=== PATIENT | male | born 1980 | race Caucasian/White ===

== ENCOUNTER 2018-11-24 23:02 | Emergency (ER) | payer OTHER ==
[2018-11-24] MEDS ORDERED: Proparacaine 0.5% Ophth Soln 15 ML Bottle STA (23:40)
--- NOTE | 2018-11-24 23:47 | EDM.PDOC ---
ED HPI GENERAL MEDICAL PROBLEM - General Chief Complaint: ENT Problem Stated Complaint: COLD/RIGHT EAR PRESSURE & PAIN Time Seen by Provider: 11/24/18 23:10 Source of Information: Reports: Patient History Limitations: Reports: No Limitations - History of Present Illness INITIAL COMMENTS - FREE TEXT/NARRATIVE: This is a 37-year-old male. For the last couple of days he's been having cold-like symptoms and sore throat runny nose and sinus symptoms. Tonight he awoke with right ear pain and pressure and he was unable to relieve it so he comes to the ER for evaluation. He denies any significant cough. He denies any documented fever or chills. He's had no nausea or vomiting or diarrhea. He does complain of a sore throat. Right Ear Pain Score (Numeric/FACES): 8 - Related Data Allergies Allergy/AdvReac Type Severity Reaction Status Date / Time pollen extracts Allergy Wheezing Verified 11/24/18 23:14 Home Meds: Home Meds cephALEXin [Keflex] 500 mg PO TID #21 cap 11/25/18 [Rx] Past Medical History HEENT History: Reports: Allergic Rhinitis Respiratory History: Reports: Asthma Neurological History: Reports: Headaches, Chronic, Migraines Psychiatric History: Reports: Anxiety, Depression - Infectious Disease History Infectious Disease History: Reports: Chicken Pox - Past Surgical History HEENT Surgical History: Reports: Other (See Below) Other HEENT Surgeries/Procedures: 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, ear pinned back ED ROS ENT - Review of Systems Review Of Systems: See Below Constitutional: Denies: Fever, Chills HEENT: Reports: Ear Pain, Rhinitis, Sinus Problem, Throat Pain Respiratory: Reports: No Symptoms Cardiovascular: Reports: No Symptoms Endocrine: Reports: No Symptoms GI/Abdominal: Reports: No Symptoms : Reports: No Symptoms Musculoskeletal: Reports: No Symptoms Skin: Reports: No Symptoms Neurological: Reports: No Symptoms Psychiatric: Reports: No Symptoms Hematologic/Lymphatic: Reports: No Symptoms ED EXAM, ENT - Physical Exam Exam: See Below Exam Limited By: No Limitations General Appearance: Alert, WD/WN, Mild Distress Eye Exam: Bilateral Eye: Normal Inspection Ears: Normal External Exam, Normal Canal, Other (Right TM is very red and retracted, left TM is normal) Nose: Clear Rhinorrhea, Nasal Discharge Mouth/Throat: Normal Gums, Normal Lips, Tonsillar Erythema Head: Normocephalic Neck: Supple Respiratory/Chest: No Respiratory Distress, Lungs Clear, Normal Breath Sounds Cardiovascular: Regular Rate, Rhythm, No Murmur GI/Abdominal: Soft Back: Full Range of Motion Extremities: Normal Inspection, Normal Range of Motion Neurological: Alert, Oriented Psychiatric: Normal Affect, Normal Mood Skin: Warm, Dry Course - Vital Signs Last Recorded V/S: Last Vital Signs Temp 97.5 F 11/24/18 23:10 Pulse 55 L 11/24/18 23:10 Resp 20 11/24/18 23:10 BP 117/74 11/24/18 23:10 Pulse Ox 96 11/24/18 23:10 - Orders/Labs/Meds Orders: Active Orders 24 hr Category Date Time Status CULTURE STREP A CONFIRMATION [RM] Stat Lab 11/25/18 00:28 Results Rapid Strep w/culture conf [STREP SCRN A RAPID W CULT Lab 11/25/18 00:28 Results CONF] [RM] Stat cefTRIAXone 1 GM with Lidocaine 1% 2.1 ML IM Med 11/25/18 01:00 Ordered cefTRIAXone [Rocephin] 1 gm Lidocaine 1% [Xylocaine 1%] 2.1 ml IM Q24H Meds: Medications Discontinued Medications Generic Name Dose Route Start Last Admin Trade Name Freq PRN Reason Stop Dose Admin Proparacaine HCl 3 ml 11/24/18 23:40 11/24/18 23:54 Proparacaine 0.5% Ophth Soln .XX 11/24/18 23:41 3 ml NOW STA Administration - Re-Assessments/Exams Free Text/Narrative Re-Assessment/Exam: 11/25/18 00:56 I spoke to the patient and the regarding the negative strep test. He does have a right otitis media. The proparacaine drops seem to ease the pain up enough for him to fall asleep. I suggested to the and he needs to take a decongestant like some Sudafed or Actifed to help open that ear up. He needs to go home and sleep and rest as much as possible and take the antibiotics. Departure - Departure Time of Disposition: 00:57 Disposition: Home, Self-Care 01 Condition: Fair Clinical Impression: Otitis media, right Qualifiers: Otitis media type: unspecified Qualified Code(s): H66.91 - Otitis media, unspecified, right ear Pharyngitis Qualifiers: Pharyngitis/tonsillitis etiology: unspecified etiology Qualified Code(s): J02.9 - Acute pharyngitis, unspecified Upper respiratory infection Qualifiers: URI type: unspecified URI Qualified Code(s): J06.9 - Acute upper respiratory infection, unspecified - Discharge Information *PRESCRIPTION DRUG MONITORING PROGRAM REVIEWED*: Not Applicable *COPY OF PRESCRIPTION DRUG MONITORING REPORT IN PATIENT MARCE: Not Applicable Prescriptions: cephALEXin [Keflex] 500 mg PO TID #21 cap Instructions: Otitis Media, Adult, [id number] Referrals: Torito Greenwood Jr, MD [Primary Care Provider] - Forms: ED Department Discharge, ED Return to Work/School Form Additional Instructions: Get the antibiotic pills on Tuesday and start taking them Tuesday evening, drink lots of water, avoid sodas and sugar and caffeine, rest and sleep as much as possible, take a decongestant such as Sudafed or Actifed to help open up the ear, use the eyedrops 3 or 4 drops as needed to help with the ear pain, take Tylenol or ibuprofen as needed for ear pain, follow up with your family doctor next week or return to the ER if your symptoms worsen - My Orders Last 24 Hours: My Active Orders 11/25/18 00:28 CULTURE STREP A CONFIRMATION [] Stat Rapid Strep w/culture conf [STREP SCRN A RAPID W CULT CONF] [] Stat 11/25/18 01:00 cefTRIAXone 1 GM with Lidocaine 1% 2.1 ML IM cefTRIAXone [Rocephin] 1 gm Lidocaine 1% [Xylocaine 1%] 2.1 ml IM Q24H - Assessment/Plan Last 24 Hours: My Active Orders 11/25/18 00:28 CULTURE STREP A CONFIRMATION [] Stat Rapid Strep w/culture conf [STREP SCRN A RAPID W CULT CONF] [] Stat 11/25/18 01:00 cefTRIAXone 1 GM with Lidocaine 1% 2.1 ML IM cefTRIAXone [Rocephin] 1 gm Lidocaine 1% [Xylocaine 1%] 2.1 ml IM Q24H
[2018-11-25] MEDS ORDERED: cefTRIAXone 1 GM, Lidocaine 1% 2.1 ML IM SCH ×2 (01:00)
== END 2018-11-25 01:15 | disposition home or self-care (01) ==
LOC: JD.ED 23:02
DX: H66.91 Otitis media, unspecified, right ear (principal); J02.9 Acute pharyngitis, unspecified
CPT/HCPCS: 87081; 87430; 96372; 99283; J0696; J2001

== ENCOUNTER 2021-07-26 21:51 | Emergency (ER) | payer BC, OTHER ==
[2021-07-26 23:34] LABS: CORONAVIRUS COVID-19 NAA NEGATIVE (NEGATIVE)
--- NOTE | 2021-07-26 23:44 | EDM.PDOC ---
ED HPI GENERAL MEDICAL PROBLEM - General Chief Complaint: ENT Problem Stated Complaint: ENT PROBLEMS/SORE THROAT,RT EAR COMPLAINT Time Seen by Provider: 07/26/21 22:58 Source of Information: Reports: Patient, EMS History Limitations: Reports: No Limitations - History of Present Illness INITIAL COMMENTS - FREE TEXT/NARRATIVE: The patient presents with right ear pain, and right sided sinus pressure. He also has congestion and a runny nose. He has no fever. He has no cough. He thinks his lymph nodes are swollen. He has no chest pain or shortness of breath. 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 He had surgery and he had radiation. Since then he has had trouble with his sinuses. He did go to a wedding last week. Onset: Gradual Duration: Day(s): Location: Reports: Face, Other (right ear) Quality: Reports: Pressure, Sharp Severity: Moderate Improves with: Reports: None Worsens with: Reports: None Associated Symptoms: Reports: No Other Symptoms Right Ear Pain Score (Numeric/FACES): 8 - Related Data Allergies Allergy/AdvReac Type Severity Reaction Status Date / Time pollen extracts Allergy Wheezing Verified 07/26/21 22:36 Home Meds: Home Meds Escitalopram [Lexapro] 20 mg PO DAILY 07/26/21 [History] SUMAtriptan [Imitrex] 100 mg PO DAILY PRN 07/26/21 [History] Past Medical History HEENT History: Reports: Allergic Rhinitis Respiratory History: Reports: Asthma Neurological History: Reports: Headaches, Chronic, Migraines Psychiatric History: Reports: Anxiety, Depression - Infectious Disease History Infectious Disease History: Reports: Chicken Pox - Past Surgical History HEENT Surgical History: Reports: Other (See Below) Other HEENT Surgeries/Procedures: 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, ear pinned back Social & Family History - Tobacco Use Tobacco Use Status *Q: Never Tobacco User Second Hand Smoke Exposure: No - Caffeine Use Caffeine Use: Reports: Coffee, Energy Drinks, Soda - Recreational Drug Use Recreational Drug Use: Yes Recreational Drug Type: Reports: Marijuana/Hashish Recreational Drug Use Frequency: Weekly ED ROS ENT - Review of Systems Review Of Systems: See Below Constitutional: Reports: No Symptoms HEENT: Reports: Ear Pain, Other (sinus pressure and congestion) Respiratory: Reports: No Symptoms Cardiovascular: Reports: No Symptoms Endocrine: Reports: No Symptoms GI/Abdominal: Reports: No Symptoms ED EXAM, ENT - Physical Exam Exam: See Below Exam Limited By: No Limitations General Appearance: Alert, No Apparent Distress Eye Exam: Bilateral Eye: EOMI Ears: Normal External Exam, Normal Canal, Other (erythema and fluid behind the right TM) Nose: Normal Inspection Mouth/Throat: Normal Inspection Head: Atraumatic, Normocephalic Neck: Normal Inspection, Lymphadenopathy (R) Respiratory/Chest: No Respiratory Distress, Lungs Clear, Normal Breath Sounds Cardiovascular: Regular Rate, Rhythm, No Edema, No Murmur GI/Abdominal: Soft, Non-Tender, No Organomegaly, No Mass Course - Vital Signs Last Recorded V/S: Last Vital Signs Temp 98.0 F 07/26/21 22:35 Pulse 69 07/26/21 22:35 Resp 20 07/26/21 22:35 BP 122/85 07/26/21 22:35 Pulse Ox 98 07/26/21 22:35 - Orders/Labs/Meds Labs: Laboratory Tests 07/26/21 07/26/21 Range/Units 22:30 22:30 Influenza Type A RNA Negative (NEGATIVE) Influenza Type B RNA Negative (NEGATIVE) SARS-CoV-2 RNA (NANDA) Negative (NEGATIVE) Group A Strep (PCR) Not detected (NOT DETECT) - Re-Assessments/Exams Free Text/Narrative Re-Assessment/Exam: 07/26/21 23:43 The strep, COVID, and influenza are all negative. He does have a right otitis media. I will get him on amoxicillin and something for pain. Departure - Departure Time of Disposition: 23:45 Disposition: Home, Self-Care 01 Condition: Good Clinical Impression: Right otitis media Qualifiers: Otitis media type: unspecified Qualified Code(s): H66.91 - Otitis media, unspecified, right ear - Discharge Information *PRESCRIPTION DRUG MONITORING PROGRAM REVIEWED*: Not Applicable *COPY OF PRESCRIPTION DRUG MONITORING REPORT IN PATIENT MARCE: Not Applicable Referrals: Doe Frost MD [Primary Care Provider] - 1 Week Additional Instructions: Take the amoxicillin 1,000 mg 2 times per day for 10 days. Take hydrocodone 1 to 2 pills by mouth every 6 hours as needed for pain. Drink plenty of fluids. Follow up with your doctor as needed. Sepsis Event Note (ED) - Focused Exam Vital Signs: Vital Signs Temp Pulse Resp BP Pulse Ox 07/26/21 22:35 98.0 F 69 20 122/85 98
== END 2021-07-26 23:53 | disposition home or self-care (01) ==
LOC: JD.ED 21:51
DX: H66.91 Otitis media, unspecified, right ear (principal); Z91.09 Other allergy status, other than to drugs and biological substances; Z20.822 Contact with and (suspected) exposure to COVID-19
CPT/HCPCS: 0240U; 87651; 99283

== ENCOUNTER 2022-09-15 02:11 | Emergency (ER) | payer BC ==
[2022-09-15] MEDS ORDERED: Acetaminophen/HYDROcodone 325-5 MG Tab PO ONE (03:34)
[2022-09-15 03:45] LABS: CORONAVIRUS COVID-19 NAA NEGATIVE (NEGATIVE)
== END 2022-09-15 04:20 | disposition home or self-care (01) ==
LOC: JD.ED 02:11
DX: J10.1 Influenza due to other identified influenza virus with other respiratory manifestations (principal); H92.03 Otalgia, bilateral; Z91.048 Other nonmedicinal substance allergy status; Z79.899 Other long term (current) drug therapy; Z20.822 Contact with and (suspected) exposure to COVID-19
CPT/HCPCS: 0241U; 99283; A9270

== ENCOUNTER 2022-12-31 09:29 | Emergency (ER) | payer BC ==
[2022-12-31] MEDS ORDERED: Sodium Chloride 0.9% 10 ML Syringe FLUSH PRN (10:02)
[2022-12-31] MEDS ORDERED: cefTRIAXone 2 GM in Sodium Chloride 0.9% 100 ML IV ONE (10:02)
[2022-12-31] MEDS ORDERED: Doxycycline Monohydrate 100 MG Cap PO ONE (10:08)
[2022-12-31] MEDS ORDERED: HYDROmorphone 0.5 MG/0.5 ML Syringe IVPUSH ONE (10:25)
== END 2022-12-31 11:48 | disposition home or self-care (01) ==
LOC: JD.ED 09:29
DX: L03.211 Cellulitis of face (principal); J45.909 Unspecified asthma, uncomplicated; Z86.16 Personal history of COVID-19; Z79.899 Other long term (current) drug therapy; Z91.048 Other nonmedicinal substance allergy status
CPT/HCPCS: 96365; 96375; 99283; A9270; J0696; J1170; J3490

== ENCOUNTER 2022-12-31 20:32 | Emergency (ER) | payer BC ==
[2022-12-31] MEDS ORDERED: Levofloxacin/Dextrose 5%-Water 750 MG in Premix Bag 1 BAG IV ONE (22:51)
[2022-12-31] MEDS ORDERED: diphenhydrAMINE 50 MG/ML SDV IVPUSH ONE (22:51)
[2023-01-01] MEDS ORDERED: Ondansetron 4 MG/2 ML SDV IVPUSH ONE (01:29)
== END 2023-01-01 02:50 | disposition home or self-care (01) ==
LOC: JD.ED 20:32
DX: L03.211 Cellulitis of face (principal); J45.909 Unspecified asthma, uncomplicated; Z91.048 Other nonmedicinal substance allergy status; Z79.51 Long term (current) use of inhaled steroids; Z86.16 Personal history of COVID-19; Z98.890 Other specified postprocedural states
CPT/HCPCS: 96365; 96375; 99283; J1200; J1956; J2405; 99284